=== PATIENT | male | born 1980 | race African-American/Black ===

== ENCOUNTER 2020-07-27 12:48 | Emergency (ER) | payer OTHER ==
[~2020-07-27] VITALS: Ht 182.9 cm; Wt 72.6 kg
[2020-07-27] MEDS ORDERED: LEVETIRACETAM 1,000 MG in SODIUM CHLORIDE 0.9% 100 ML IV SCH (13:00)
[2020-07-27] MEDS: LORAZEPAM 2MG/ML CPJ IV ONE (13:00)
[2020-07-27] MEDS: LEVETIRACETAM 1000MG PREMIX 100 ML IV SCH (17:15)
[2020-07-27 18:06] VITALS: BP 127/80
== END 2020-07-27 18:10 | disposition home or self-care (01) ==
LOC: EDBD 13:05 → ER 13:05
DX: G40.909 Epilepsy, unspecified, not intractable, without status epilepticus (principal); F10.129 Alcohol abuse with intoxication, unspecified; I49.9 Cardiac arrhythmia, unspecified; Z87.820 Personal history of traumatic brain injury; Z71.41 Alcohol abuse counseling and surveillance of alcoholic; Y90.9 Presence of alcohol in blood, level not specified
CPT/HCPCS: 93005; 96365; 96375; 99284; J1953; J2060; J7050